=== PATIENT | male | born 2005 | race Two or more races ===

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

== ENCOUNTER → 2025-06-27 | Outpatient (CLI) | payer BC ==
[2025-06-27 07:33] LABS: Hematocrit 47.6 % (41.0-53.0); Hemoglobin 16.1 g/dL (13.5-17.5); Mean Corpuscular Hemoglobin 28.1 pg (28.0-32.0); Mean Corpuscular Volume 83.2 fL (80.0-100.0); Nucleated Red Blood Cells % 0.2 %
[2025-06-27 08:05] LABS: Urine Protein, UAD 1+ (Negative)
[2025-06-27 12:04] LABS: Alanine Aminotransferase 24 U/L (7-40); Albumin 4.5 g/dL (3.2-4.8); Alkaline Phosphatase 88 U/L (46-116); Anion Gap 12 (5-15); BUN/Creatinine Ratio 8.7 (10.0-20.0); Calcium 9.0 mg/dL (8.7-10.4); Carbon Dioxide 25 mmol/L (20-31); Chloride 104 mmol/L (98-107); Glucose 85 mg/dL (74-106); Potassium 3.6 mmol/L (3.5-5.1); Sodium 141 mmol/L (136-145); Total Protein 7.5 g/dL (5.7-8.2); Triglycerides 103 mg/dL (< 150)
[2025-06-27 12:05] LABS: Bilirubin, Total 0.8 mg/dL (0.2-1.0); Cholesterol 129 mg/dL (< 200)
[2025-06-27 12:13] LABS: Blood Urea Nitrogen 8 mg/dL (9-23); HDL Cholesterol 31 mg/dL (40-59)
== END | disposition home or self-care (01) ==
LOC: LAB 07:10
PROVIDERS: ATTEND Student in an Organized Health Care Education/Training Program
DX: I10 Essential (primary) hypertension (principal); E55.9 Vitamin D deficiency, unspecified; R73.9 Hyperglycemia, unspecified
CPT/HCPCS: 36415; 80053; 80061; 81001; 82306; 83036; 84443; 85025